=== PATIENT | male | born 1995 ===

== ENCOUNTER 2024-08-28 23:57 | Outpatient (BNV) | payer BC, SELFPAY | END 2024-08-29 10:51 | PROVIDERS: Admitting Provider Psychiatry & Neurology Psychiatry; Visit Provider Internal Medicine Cardiovascular Disease | DX: R00.1 Bradycardia, unspecified (principal) | CPT/HCPCS: 93010 ==

== ENCOUNTER 2024-08-28 23:57 | Inpatient (IN) | payer BC, SELFPAY ==
--- NOTE | 2024-08-29 | ECG_ITS ---
Test Reason : ECT clearance Blood Pressure : */* mmHG Vent. Rate : 45 BPM Atrial Rate : 45 BPM P-R Int : 140 ms QRS Dur : 114 ms QT Int : 446 ms P-R-T Axes : 66 85 77 degrees QTcB Int : 385 ms Sinus bradycardia Incomplete left bundle branch block ST elevation, consider early repolarization, pericarditis, or injury Abnormal ECG No previous ECGs available Referred By: Geoff Adkins Electronically Signed By: Charlie Diamond
--- OUTSIDE RECORDS SUMMARY | 2024-08-29 | XMS_ITS | Continuity of Care Document ---
Author Organization [facility] Address [address] [place] [address]- Care Team Providers Care Sales Team Manager Name Role Phone Alonso Sanchez DO Primary Care Physician [phone] Encounter [facility] Date(s): 08/25/24 - 08/25/[address] [address]- Encounter Diagnosis Anxiety(Final) - 08/25/24 Attention deficit disorder(Final) - 08/25/24 Discharge Disposition: A-D/C Home Attending Physician: Quan Rico MD Admitting Physician: Quan Rico MD Referring Physician: Not on Staff, Referring MD Encounter Type: Disch ES Allergies, Adverse Reactions, Alerts No Known Allergies Immunizations Given and Recorded Vaccine Date Status Refusal Reason influenza virus vaccine, inactivated 06/29/13 Dom rded influenza virus vaccine, inactivated 06/16/12 Dom rded influenza virus vaccine, inactivated 07/16/11 Dom rded influenza virus vaccine, inactivated 07/11/10 Dom rded pneumococcal 23-valent vaccine 07/16/11 Recorded Menactra (oldterm) 1 06/28/09 Given influ virus vac, H1N1, inactive(oldterm) 2 06/28/09 Given Influenza Inactive (IM) (oldterm) 06/08/08 Given Tet/Diphth/Acel, Pertussis (oldterm) 02/07/07 Give n hepatitis B adult vaccine 08/01/04 Recorded hepatitis B pediatric vaccine 07/18/95 Recorded hepatitis B pediatric vaccine 05/03/95 Recorded 1Admin Note: vis given 2Admin Note: vis given Medications No Known Medications Problem List Condition Confirmation Course Effective Dates Status Health St atus Informant Asthma Confirmed Active ADD (attention deficit disorder) Confirmed Active Abnormal blood sugar Confirmed Active Left clavicle fx 06/20/11 Confirmed Active Left wrist fracture 06/20/11 Confirmed 06/20/11 Active Depression Confirmed Active Vital Signs Most recent to oldest [Reference Range]: 1 2 3 Height 188 cm (08/25/24 2:43 AM) Weight 78.5 kg (08/25/24 2:43 AM) Oxygen Saturation [94-100 %] 100 % (08/25/24 9:50 AM) 100 % (08/25/24 5:35 AM) 100 % (08/25/24 2:43 AM) Pulse Rate [55-90 bpm] 54 bpm *L* (08/25/24 5:35 AM) 66 bpm (08/25/24 2:43 AM) Blood Pressure [90-138/55-84 mm Hg] 125/83mm Hg (08/25/24 9:50 AM) 109/66mm Hg (08/25/24 5:35 AM) 124/76mm Hg (08/25/24 2:43 AM) Respiratory Rate [16-30 br/min] 16 br/min (08/25/24 9:50 AM) 18 br/min (08/25/24 5:35 AM) 18 br/min (08/25/24 2:43 AM) Temperature [96.8-100.4 DegF] 98.1 DegF (08/25/24 9:50 AM) 97.8 DegF (08/25/24 5:35 AM) 97.8 DegF (08/25/24 2:43 AM) Mode of Delivery (Oxygen) Room air (08/25/24 9:50 AM) Room air (08/25/24 5:35 AM) Room air (08/25/24 2:43 AM) Temperature Route Temporal (08/25/24 9:50 AM) Temporal (08/25/24 5:35 AM) Temporal (08/25/24 2:43 AM) Dry Weight 78.5 kg (08/25/24 2:43 AM) Weight Obtained Via Patient/family state d (08/25/24 2:43 AM) Social History Social History Type Response Smoking Status Never smoker entered on: 04/06/14 Sex Sex Representation Male (finding) Patient Care team information Care Team Personnel Name: Daniel Alonso Position: Reference Physician Member Role: PCP Address: [address] [place] [address] Telecom: Care Team Related Persons Name: JUANA AQUINO Name: ARNOL AQUINO Insurance Providers Guarantor name: VIV Health Plan Information #: 1 Payer: [employer] Member Number: [id number] Policy Number: NA Group Number: [id number] Health Plan Information #: 2 Payer: [employer] Member Number: [id number] Policy Number: NA Group Number: [id number]
[2024-08-29 00:50] VITALS: BMI 21.3
[2024-08-29 01:20] VITALS: BP 108/70; PULSE 96; RESP 18; TEMP 36.9; O2SAT 98
--- NOTE | 2024-08-29 02:09 | PC.ADMIT ---
Addendum entered by Ana Troncoso RN 08/29/24 03:24: Late entry: Tae has declined the flu shot as of 0200. Original Note: Tae Grider is a 29 year old man admitted on a CV; he is on 5 minute checks due to catatonia. He was admitted on 08/29/24 at 0110. His safety check was completed at that time and his skin check was unremarkable. Tae is independent with mobility and ADLs. He has no history of alcohol use disorder or substance abuse disorder. He is not a smoker. His parents and sister report that his appetite and ADLs have suffered since he embarked on a adventism mission trip to [place] in the summer of 2023. Family has noted that he will perseverate on adventism themes and prayers, and appears to be responding to internal stimuli at times. He has also grown increasingly flat and/or blank. Tae had been seen recently at [facility] and improved briefly, but returned after decompensation, which led to this admission.
--- NOTE | 2024-08-29 02:32 | PC.NURSE ---
Patient refused flu shot. Patient also refused Ativan PO; he states I had a bad reaction to that in the ED when I was there...I went home and I was shaking and stuff. I don't want to take it again.
[2024-08-29 08:00] VITALS: BP 105/63; PULSE 71; RESP 20; TEMP 36.8; O2SAT 100
[2024-08-29 08:40] LABS: MANUAL DIFF FLAG NO
[2024-08-29 08:42] LABS: Basophils Percent Auto 0.4 % (0-2); Eosinophils Absolute Auto 0.1 X10*3/uL (0.0-0.4); Eosinophils Percent Auto 0.9 % (0-4); Hematocrit 40.7 % (42.0-52.0); Hemoglobin 14.8 g/dl (14.0-18.0); Imm Gran Abs Auto 0.01 X10*3/uL (0.00-0.03); Imm Gran Pct Auto 0.2 % (0.0-0.4); Lymphocytes Absolute Auto 1.1 X10*3/uL (1.2-4.9); Lymphocytes Percent Auto 19.5 % (20-40); Mean Corpuscular HGB Conc 36.4 g/dl (31.0-36.0); Mean Corpuscular Hemoglobin 32.8 pg (27.0-33.0); Mean Corpuscular Volume 90.2 fL (80.0-98.0); Mean Platelet Volume 9.8 fL (9.4-12.4); Monocytes Absolute Auto 0.5 X10*3/uL (0.1-1.2); Monocytes Percent Auto 9.3 % (2-11); Neutrophils Absolute Auto 3.9 x10*3/uL (2.0-8.3); Neutrophils Percent Auto 69.7 % (45-73); Platelet Count 195 X10*3/uL (160-400); Red Blood Count 4.51 X10*6/uL (4.60-5.80); Red Cell Distribution Width 11.6 % (11.0-16.0); White Blood Count 5.6 X10*3/uL (4.8-10.8)
[2024-08-29 08:55] LABS: Alanine Aminotransferase 31 U/L (0-40); Albumin Level 4.9 g/dL (3.5-5.0); Alkaline Phosphatase 43 U/L (39-117); Anion Gap 11 (12-20); Aspartate Amino Transferase 33 U/L (5-37); Bilirubin Total 0.9 mg/dL (0.0-1.0); Blood Urea Nitrogen 31 mg/dL (9-16); Calcium 9.3 mg/dL (8.4-10.2); Carbon Dioxide 27 mmol/L (22-29); Chloride 106 mmol/L (96-108); Creatinine Clr Calc Pharmacy 114.3; Estimated Glomerular Filt Rate > 60; Glucose Random 104 mg/dL (60-115); Potassium 4.2 mmol/L (3.3-5.1); Sodium 140 mmol/L (135-145); Total Protein 8.3 g/dL (6.5-8.0)
--- NOTE | 2024-08-29 09:16 | HO.PSYADMNOT ---
HPI Date of Service: 08/29/24 Chief Complaint: F23, F43.22, F29 Sources of Information: chart reviewed and crisis/core team assessment reviewed HPI Subjective Notes: Evans Warning and Conditional Voluntary Narrative: Tae is a 29-year-old white, single, young man works at times at the [employer] in [place]. He is currently living at home with his parents even though he does have a place of his own. He was taken to the emergency room by his family because of some issues with anxiety, depression, at times not communicating at all. In the emergency room at [facility] he was mostly nonverbal with flat affect. He was given some Ativan which she dislikes because ?I have a reaction to it? but can not specifically say what kind. He has had 1 prior hospitalizations at [facility] for ?catatonia?. I was able to talk to his mother with his verbal permission. He was recently on a jehovah's witness pilgrimage with an organization in [place] that went to [place] for 2 months. His mother feels that he might have been traumatized there but no specifics are unknown. Upon returning he presented as being more anxious, preoccupied. He denies any auditory or visual hallucinations but his mother wonders about him at times having internal stimuli. He also gets very boggy down with certain thought processes and at times has expressed the fact that his brain and thought processes are controlled by an outside force. He denies this with me today. No history of substance abuse. When he was younger he was on Wellbutrin and Adderall and was seeing a Pentecostal therapist who subsequently retired and he has not been seeing anybody since. He has been sleeping adequately and according to his mother has lost around 30 lb in the past 6 months. He is currently not interested in medications. Past Psychiatric History: Some outpatient and 1 inpatient hospitalization several years ago at [facility] Medical Evaluation Reviewed: Yes [facility] Narrative: No active disease Family History: 15 years ago his father was treated for a major depressive episode. His sister has had anxiety and also at times getting preoccupied with certain thought processes Social History: Tae is 1 of 6 siblings. His parents are together and live in [place] and have a [employer] business in [place]. Tae has no history of abuse. He has had some psychiatric problems with anxiety, depression, possible ADHD since his teens. He did finish high school, some courses at [employer] and got an engineering associates degree from [employer]. He does have some friends but never any relationships. He does have a place to live but he is living at home with his parents are very supportive. Substance History: None Trauma History: None known Diagnostics Vital Signs (24Hr): Vital Signs - 24 hr 08/29/24 01:20 08/29/24 08:00 Temperature 98.5 F 98.2 F Pulse Rate 96 71 Respiratory Rate 18 20 Blood Pressure 108/70 105/63 Pulse Oximetry 98 100 Oxygen Delivery Method Room Air Room Air BMI result Body Mass Index 21.3 Labs 08/29/24 08:32 08/29/24 08:32 Labs: Laboratory Results - last 48 hr 08/29/24 08:32 WBC 5.6 RBC 4.51 L Hgb 14.8 Hct 40.7 L MCV 90.2 MCH 32.8 MCHC 36.4 H RDW 11.6 Plt Count 195 MPV 9.8 Immature Gran % (Auto) 0.2 Neut % (Auto) 69.7 Lymph % (Auto) 19.5 L [place] % (Auto) 9.3 Eos % (Auto) 0.9 Baso % (Auto) 0.4 Lymph # (Auto) 1.1 L [place] # (Auto) 0.5 Eos # (Auto) 0.1 Baso # (Auto) 0.0 Abs Immat Gran (auto) 0.01 Absolute Neuts (auto) 3.9 Absolute Nucleated RBC 0.000 Nucleated RBC % (auto) 0.0 Sodium 140 Potassium 4.2 Chloride 106 Carbon Dioxide 27 Anion Gap 11 L BUN 31 H Creatinine 0.95 Estim Creat Clear Calc 114.3 Estimated GFR > 60 Random Glucose 104 Calcium 9.3 Total Bilirubin 0.9 AST 33 ALT 31 Alkaline Phosphatase 43 Total Protein 8.3 H Albumin 4.9 Meds/Allergies Allergies Allergies Allergy/AdvReac Type Severity Reaction Status Date / Time No Known Allergies Allergy Verified 08/29/24 00:18 Mental Status Exam Mental Status Exam Narrative: Tae was seen the morning after his admission. He is alert, oriented and pleasant. Soft-spoken speech. Minimal to moderate eye contact. Affect is appropriate and constricted. He does not appear to be responding to internal stimuli. He denies AVH. No overt delusions. Cognitively is grossly intact. He is more talkative than he was stated to be in the emergency room. He denies any SI/HI. Denies any history of self-harm. Judgment is marginal. Assessment & Plan Assessment & Plan (1) Major depression with psychotic features: Status: Acute Code(s): F32.3 - Major depressive disorder, single episode, severe with psychotic features Plan Tae meets criteria for IP LOC for evaluation and treatment. He minimizes any problems which has been the case historically and not willing to try any medications. I tried to explain to him that the Ativan that he received in the emergency room has been what has helped and he is much more verbal and interactive but he feels that he has a ?reaction? to Ativan!. I offered him a trial of SSRIs but he is not interested. He is signing a 3 day notice today. Patient educated on: diagnosis and medication risk/benefits Reason for continued inpatient stay Substantial Risk for: med/psych decompensation Statement Statement: I have reviewed the history and physical and performed a pertinent examination on my patient. No changes have occurred unless specified. If the History and Physical was not performed prior to admission, the Hospitalist's service will be consulted for completing the admission physical. Time Spent With Patient Time: Total time managing care of this patient today ____ minutes.
--- NOTE | 2024-08-29 13:26 | P.CONHOSP_ITS ---
History of Present Illness Data of Consult Service Date: 08/29/24 Primary Care Provider: Unknown Physician HPI A 29-year-old male with no significant past medical history is currently hospitalized in the inpatient psychiatric unit for depressive and anxiety symptoms with psychotic thoughts. He was admitted from [facility], where he was reportedly treated for catatonia. He reports no acute medical issues at this time. Review of Systems 2 Review of Systems: Gen: no fever Resp: no sob, no cough CV: no chest, no GUTIERREZ, no leg edema GI: No n/v, no abd pain Neuro: No confusion Yes all other systems are reviewed and are negative [facility] Social History Household Members: Family Housing: Unknown / Unable to assess Do you presently have visiting nurse or other home services: No Patient Tobacco Use Status: Former Tobacco user Tobacco use type: Cigarette Cigarette Packs Per Day: 0.05 Cigarettes Per Day: 1.0 Smoked in Last 30 Days: No e-Cigarette/Vaping Use: Never Used Patient Interested in Nicotine Replacement: No Patient Given Instructions on How to Stop Smoking: Yes Date Education Initiated: 08/29/24 Second Hand Smoke Exposure: Yes Use of substances other than those prescribed or required for medical reasons: No Currently Displaying Signs/Symptoms of Drug Intoxication Withdrawal: No Any prior treatment program specific to substance use: No Have you been hit, kicked, punched, or otherwise hurt by someone within the past year? If so, by whom?: No (Per [facility] record) Do you feel safe in your current relationship?: No Current Relationship Is there a partner from a previous relationship who is making you feel unsafe now?: No (Per [facility] record) Are you made to feel afraid or neglected: No (Per [facility] record) Advance Directives: No Advance Directives Information Provided: Yes Do you have thoughts of harming others: None Do you have a plan to hurt others: No Plan Recently lost weight without trying: Unsure Nutrition Risks: Poor intake 0-25% >4 days Poor oral hygiene: Yes Meds Allergies Allergy/AdvReac Type Severity Reaction Status Date / Time No Known Allergies Allergy Verified 08/29/24 00:18 Active Medications: Current Medications Acetaminophen (Acetaminophen 325 Mg Tablet) 650 mg PO Q6H PRN PRN Reason: Headache/Pain Mild Scale (1-3) Al Hydroxide/Mg Hydroxide (Magnesium Hydrox/Alum Hydrox 30 Ml Oral.Susp) 30 ml PO Q6H PRN PRN Reason: Heartburn/Nausea Hydroxyzine HCl (Hydroxyzine Hcl 25 Mg Tablet) 25 mg PO Q6H PRN PRN Reason: Anxiety Lorazepam (Lorazepam 1 Mg Tablet) 1 mg PO Q6H ROBERT Last Admin: 08/29/24 13:15 Dose: Not Given Magnesium Hydroxide (Milk Of Magnesia 30 Ml Oral.Susp) 30 ml PO DAILY PRN PRN Reason: Constipation Trazodone HCl (Trazodone Hcl 50 Mg Tablet) 50 mg PO BEDTIME MRX1 PRN PRN Reason: Insomnia Physical Exam 2 Vital Signs and Narrative: Vital Signs: Last Vital Signs Temp 98.2 F 08/29/24 08:00 Pulse 71 08/29/24 08:00 Resp 20 08/29/24 08:00 BP 105/63 08/29/24 08:00 Pulse Ox 100 08/29/24 08:00 O2 Del Method Room Air 08/29/24 08:00 BMI result Body Mass Index 21.3 Const: Other: General: AO X 3, no acute distress Resp: CTA bilateral CVS: S1,S2,RRR GI: +BS, NT, no distention Skin: No rash Neuro: motor grossly intact, CN 2 to 12 intact Psych: appropriate affect Results Labs 08/29/24 08:32 08/29/24 08:32 Labs: Laboratory Results - last 24 hr 08/29/24 08:32 MCV 90.2 MCH 32.8 MCHC 36.4 H RDW 11.6 Plt Count 195 MPV 9.8 Immature Gran % (Auto) 0.2 Neut % (Auto) 69.7 Lymph % (Auto) 19.5 L [place] % (Auto) 9.3 Eos % (Auto) 0.9 Baso % (Auto) 0.4 Lymph # (Auto) 1.1 L [place] # (Auto) 0.5 Eos # (Auto) 0.1 Baso # (Auto) 0.0 Abs Immat Gran (auto) 0.01 Absolute Neuts (auto) 3.9 Absolute Nucleated RBC 0.000 Nucleated RBC % (auto) 0.0 Anion Gap 11 L Estim Creat Clear Calc 114.3 Estimated GFR > 60 Random Glucose 104 Calcium 9.3 Total Bilirubin 0.9 AST 33 ALT 31 Alkaline Phosphatase 43 Total Protein 8.3 H Albumin 4.9 Assessment and Plan (1) Major depression with psychotic features: Status: Acute (2) Sinus bradycardia: Status: Acute Plan A 29-year-old man is being treated for depression, anxiety, and psychotic symptoms. He has no acute medical issues at present. If electroconvulsive therapy (ECT) is planned, no additional testing is necessary. I reviewed the ECG on record, which shows sinus bradycardia with early repolarization. The patient can proceed with ECT following standard guidelines. Otherwise, continue behavioral and pharmacological therapy as previously prescribed. Thank you.
--- NOTE | 2024-08-29 14:08 | PC.NURSE ---
Pt signed a 3 day notice 08/29/24 and appropriate persons notified.
[2024-08-29 20:00] VITALS: PULSE 65; RESP 15; TEMP 37.2; O2SAT 100
[2024-08-30 08:00] VITALS: BP 99/56; PULSE 88; RESP 20; TEMP 36.6; O2SAT 100
--- NOTE | 2024-08-30 11:03 | HO.PSYCHPN ---
Subjective Subjective Date of Service: 08/30/24 Reason For Visit: F23, F43.22, F29 Subjective Notes: Conditional Voluntary Interim History: Patient was seen and discussed in rounds today. Records and plans were reviewed. He continues to be mostly in his room but does come out and interact with staff. He states that he had a nightmare that woke him up this morning and has been visibly anxious from it but very resistant to taking Ativan or hydroxyzine which we discussed at length. I also discussed possibility of trying him on Xanax but he was not that committal. He talked about his family who visited yesterday and it went well. No SI. No changes were made today Review of Systems Review of Systems Anxiety Yes all other systems are reviewed and are negative Mental Status Exam Mental Status Exam Narrative: In today's visit he is alert, oriented and pleasant. Normal speech. Minimal eye contact. Affect is appropriate, tense and he is visibly anxious. No AVH. No active SI. Cognitively intact with slow thought processes and some blocking. Judgment is intact Diagnostics Vital Signs (24Hr): Vital Signs - 24 hr 08/29/24 20:00 08/30/24 08:00 Temperature 98.9 F 97.9 F Pulse Rate 65 88 Respiratory Rate 15 20 Blood Pressure 99/56 L Pulse Oximetry 100 100 Oxygen Delivery Method Room Air BMI result Body Mass Index 21.3 Labs 08/29/24 08:32 08/29/24 08:32 Labs: Laboratory Results - last 48 hr 08/29/24 08:32 WBC 5.6 RBC 4.51 L Hgb 14.8 Hct 40.7 L MCV 90.2 MCH 32.8 MCHC 36.4 H RDW 11.6 Plt Count 195 MPV 9.8 Immature Gran % (Auto) 0.2 Neut % (Auto) 69.7 Lymph % (Auto) 19.5 L [place] % (Auto) 9.3 Eos % (Auto) 0.9 Baso % (Auto) 0.4 Lymph # (Auto) 1.1 L [place] # (Auto) 0.5 Eos # (Auto) 0.1 Baso # (Auto) 0.0 Abs Immat Gran (auto) 0.01 Absolute Neuts (auto) 3.9 Absolute Nucleated RBC 0.000 Nucleated RBC % (auto) 0.0 Sodium 140 Potassium 4.2 Chloride 106 Carbon Dioxide 27 Anion Gap 11 L BUN 31 H Creatinine 0.95 Estim Creat Clear Calc 114.3 Estimated GFR > 60 Random Glucose 104 Calcium 9.3 Total Bilirubin 0.9 AST 33 ALT 31 Alkaline Phosphatase 43 Total Protein 8.3 H Albumin 4.9 Medications Medications Current Medications Acetaminophen (Acetaminophen 325 Mg Tablet) 650 mg PO Q6H PRN PRN Reason: Headache/Pain Mild Scale (1-3) Al Hydroxide/Mg Hydroxide (Magnesium Hydrox/Alum Hydrox 30 Ml Oral.Susp) 30 ml PO Q6H PRN PRN Reason: Heartburn/Nausea Hydroxyzine HCl (Hydroxyzine Hcl 25 Mg Tablet) 25 mg PO Q6H PRN PRN Reason: Anxiety Lorazepam (Lorazepam 1 Mg Tablet) 1 mg PO Q6H ROBERT Last Admin: 08/30/24 06:50 Dose: Not Given Magnesium Hydroxide (Milk Of Magnesia 30 Ml Oral.Susp) 30 ml PO DAILY PRN PRN Reason: Constipation Trazodone HCl (Trazodone Hcl 50 Mg Tablet) 50 mg PO BEDTIME MRX1 PRN PRN Reason: Insomnia Allergies Allergies Allergy/AdvReac Type Severity Reaction Status Date / Time No Known Allergies Allergy Verified 08/29/24 00:18 Assessment & Plan Assessment & Plan (1) Major depression with psychotic features: Status: Acute Code(s): F32.3 - Major depressive disorder, single episode, severe with psychotic features (2) Sinus bradycardia: Status: Acute Code(s): R00.1 - Bradycardia, unspecified Assessment and Plan: 08/30/2024: Continue current regimen and plans Plan A 29-year-old man is being treated for depression, anxiety, and psychotic symptoms. He has no acute medical issues at present. If electroconvulsive therapy (ECT) is planned, no additional testing is necessary. I reviewed the ECG on record, which shows sinus bradycardia with early repolarization. The patient can proceed with ECT following standard guidelines. Otherwise, continue behavioral and pharmacological therapy as previously prescribed. Thank you. Patient educated on: medication risk/benefits Reason for continued inpatient stay Substantial Risk for: med/psych decompensation Time Spent With Patient Time: Total time managing care of this patient today ____ minutes.
[2024-08-30] MEDS: LORazepam 1 MG TABLET PO (11:05)
[2024-08-30 19:53] VITALS: BP 127/66; PULSE 67; RESP 15; TEMP 36.1; O2SAT 100
[2024-08-31] MEDS: LORazepam 1 MG TABLET PO ×3 (11:18→20:16)
--- NOTE | 2024-08-31 19:20 | P.PNPSI_ITS ---
Subjective Subjective Date of Service: 08/31/24 Reason For Visit: F23, F43.22, F29 Interim History: Met with patient; discussed with team; reviewed chart On approach, patient lying on his bed in a stiff position, saying that I am just resting... Patient not wanting to engage much and had earlier refused Ativan. [employer] Pcb Draftsman discussed how Ativan is treatment for catatonia and patient said he would try it again. [employer] P[employer] Draftsman approached him later and he agreed that Ativan did help him considerably and he said he was much more able to walk, talk and not have obsessive thoughts though he would not disclose the contents. Patient agreed to continue with Ativan treatment. [employer] P[employer] Draftsman continued to talk with patient who said he was rarely comfortable sharing his private life but said he would talk in code and would use the game chess as an analogy. Patient said he was playing his father and chess and trying to lose in chess, and that for the past few months he had been doing weird things, eating lots of food, not talking, not sleeping (though no manic behaviors, does lying in bed wishing he could sleep)... And that he kept losing in chess over and over... He reminded commercial lines underwriter that he was talking in code and wanted to know if commercial lines underwriter understood. [employer] Pcb Draftsman explained it was not clear and patient got more anxious and said he did not want to talk much more about it for now. Patient was able to talk about other things, such as working at his [employer] Mental Status Exam Mental Status Exam Narrative: Pt is alert and oriented; behavior is guarded but also cooperative;, reticent, odd behaviors; patient is not in distress; dressed in hospital attire with unkempt;; mood is described as okay and affect anxious; eye contact avoidant; Speech is with some latency; normal volume; not pressured; psychomotor retardation present; thought process is goal directed but also distracted; Thought content is on undisclosed troubles; unable to assess for delusions; denies any SI/HI. Denies AVH but does appear internally preoccupied. Patients insight and judgment impaired Diagnostics Vital Signs (24Hr): Vital Signs - 24 hr 08/30/24 19:53 Temperature 96.9 F Pulse Rate 67 Respiratory Rate 15 Blood Pressure 127/66 Pulse Oximetry 100 BMI result Body Mass Index 21.3 Labs 08/29/24 08:32 08/29/24 08:32 Medications Medications Current Medications Acetaminophen (Acetaminophen 325 Mg Tablet) 650 mg PO Q6H PRN PRN Reason: Headache/Pain Mild Scale (1-3) Al Hydroxide/Mg Hydroxide (Magnesium Hydrox/Alum Hydrox 30 Ml Oral.Susp) 30 ml PO Q6H PRN PRN Reason: Heartburn/Nausea Hydroxyzine HCl (Hydroxyzine Hcl 25 Mg Tablet) 25 mg PO Q6H PRN PRN Reason: Anxiety Lorazepam (Lorazepam 1 Mg Tablet) 1 mg PO QID ROBERT Last Admin: 08/31/24 17:54 Dose: Not Given Magnesium Hydroxide (Milk Of Magnesia 30 Ml Oral.Susp) 30 ml PO DAILY PRN PRN Reason: Constipation Trazodone HCl (Trazodone Hcl 50 Mg Tablet) 50 mg PO BEDTIME MRX1 PRN PRN Reason: Insomnia Allergies Allergies Allergy/AdvReac Type Severity Reaction Status Date / Time No Known Allergies Allergy Verified 08/29/24 00:18 Assessment & Plan Assessment & Plan (1) Major depression with psychotic features: Status: Acute Code(s): F32.3 - Major depressive disorder, single episode, severe with psychotic features (2) Catatonia: Status: Acute Code(s): F06.1 - Catatonic disorder due to known physiological condition (3) Sinus bradycardia: Status: Acute Code(s): R00.1 - Bradycardia, unspecified Assessment and Plan: 08/30/2024: Continue current regimen and plans Plan Hospital course: 08/31 On approach, patient lying on his bed in a stiff position, saying that I am just resting... Patient not wanting to engage much and had earlier refused Ativan. [employer] P[employer] Draftsman discussed how Ativan is treatment for catatonia and patient said he would try it again. [employer] P[employer] Draftsman approached him later and he agreed that Ativan did help him considerably and he said he was much more able to walk, talk and not have obsessive thoughts though he would not disclose the contents. Patient agreed to continue with Ativan treatment. [employer] Pcb Draftsman continued to talk with patient who said he was rarely comfortable sharing his private life but said he would talk in code and would use the game chess as an analogy. Patient said he was playing his father and chess and trying to lose in chess, and that for the past few months he had been doing weird things, eating lots of food, not talking, not sleeping (though no manic behaviors, does lying in bed wishing he could sleep)... And that he kept losing in chess over and over... He reminded commercial lines underwriter that he was talking in code and wanted to know if commercial lines underwriter understood. [employer] Pcb Draftsman explained it was not clear and patient got more anxious and said he did not want to talk much more about it for now. Patient was able to talk about other things, such as working at his [employer] range Plan: Three day notice Ativan 1 mg q.i.d. for treatment of catatonia working on collateral; pt said could speak to his parents Patient educated on: diagnosis and medication risk/benefits Informed Consent: understands, does not understand and further education needed Reason for continued inpatient stay Substantial Risk for: rapid decompensation Time Spent With Patient Time: Total time managing care of this patient today ____ minutes.
[2024-08-31 20:00] VITALS: BP 103/69; PULSE 112; TEMP 36.4; O2SAT 96
[2024-09-01] MEDS: LORazepam 1 MG TABLET PO ×4 (09:33→20:44)
--- NOTE | 2024-09-01 13:40 | HO.PSYCHPN ---
Subjective Subjective Date of Service: 09/01/24 Reason For Visit: F23, F43.22, F29 Interim History: Met with patient; discussed with team Patient though guarded, decided to be open about what he was thinking and feeling. Patient asked contract technical writer if contract technical writer was aware of the game men play. He went on to describe that there is a game where a bigger, stronger man will compete against another man with body language is able to win by making the smaller man feel low self-esteem and it causes a headache and sometimes tunneled vision and can make you end up doing something you do not want to do...; this enables the bigger man to overall do what he wants (contract technical writer inquired and patient denied that there is any physical, sexual or verbal abuse). Patient said that his dad has hurt his self-worth with his game for years and that it caused a lot of strange behavior. Since he was losing, Patient said his own strategy was to get good at losing. When you lose there is a way out; you find some specific thing to come out of it. Patient said that he found that eating chicken sausage was his way out and so he would need a bunch of it. He reiterated that his dad would when too much with him and his brother. Patient said that now he no longer plays the game and according to the rules, this is allowable. Patient has never talked about this with anyone and thought that 1 of the rules as your are never supposed to talk about it. Patient came to this conclusion when he overheard two other people in a private conversation say you are not supposed to talk about it; he just assumed that they were talking about this specific game. Patient denies any auditory or visual hallucinations current or past. He shared it was a relief to finally be able to talk about this game and said that he thinks it was probably okay because this contract technical writer was his doctor. Online Retailer discussed treatment and that Ativan was a temporary medication use to get him out of catatonia, which seems to be helping. At this time patient is not willing to try any other medications. Online Retailer discussed perhaps patient staying longer on the unit to continue with Ativan treatment and to see if he might change his mind about medications however at this time patient still wanted to leave when his 3 day was due. Mental Status Exam Mental Status Exam Narrative: Pt is alert and oriented; behavior is guarded but more willing to open up; cooperative, calm; isolative; some odd behaviors; patient is not in distress; dressed in hospital attire with unkempt with marginal hygiene; mood is described as okay and affect anxious; eye contact avoidant; Speech is with some latency; normal volume; not pressured; psychomotor retardation present; thought process is goal directed but also distracted; Thought content is on delusional ideas; denies any SI/HI. Denies AVH but does appear internally preoccupied. Patients insight and judgment impaired Diagnostics Vital Signs (24Hr): Vital Signs - 24 hr 08/31/24 20:00 Temperature 97.5 F Pulse Rate 112 H Blood Pressure 103/69 Pulse Oximetry 96 Oxygen Delivery Method Room Air BMI result Body Mass Index 21.3 Labs 08/29/24 08:32 08/29/24 08:32 Medications Medications Current Medications Acetaminophen (Acetaminophen 325 Mg Tablet) 650 mg PO Q6H PRN PRN Reason: Headache/Pain Mild Scale (1-3) Al Hydroxide/Mg Hydroxide (Magnesium Hydrox/Alum Hydrox 30 Ml Oral.Susp) 30 ml PO Q6H PRN PRN Reason: Heartburn/Nausea Hydroxyzine HCl (Hydroxyzine Hcl 25 Mg Tablet) 25 mg PO Q6H PRN PRN Reason: Anxiety Lorazepam (Lorazepam 1 Mg Tablet) 1 mg PO QID ROBERT Last Admin: 09/01/24 12:14 Dose: 1 mg Magnesium Hydroxide (Milk Of Magnesia 30 Ml Oral.Susp) 30 ml PO DAILY PRN PRN Reason: Constipation Trazodone HCl (Trazodone Hcl 50 Mg Tablet) 50 mg PO BEDTIME MRX1 PRN PRN Reason: Insomnia Allergies Allergies Allergy/AdvReac Type Severity Reaction Status Date / Time No Known Allergies Allergy Verified 08/29/24 00:18 Assessment & Plan Assessment & Plan (1) Major depression with psychotic features: Status: Acute Code(s): F32.3 - Major depressive disorder, single episode, severe with psychotic features (2) Catatonia: Status: Acute Code(s): F06.1 - Catatonic disorder due to known physiological condition (3) Sinus bradycardia: Status: Acute Code(s): R00.1 - Bradycardia, unspecified Assessment and Plan: 08/30/2024: Continue current regimen and plans Plan HPI: Tae is a 29-year-old white, single, young man works at times at the [employer] in [place]. He is currently living at home with his parents even though he does have a place of his own. He was taken to the emergency room by his family because of some issues with anxiety, depression, at times not communicating at all. In the emergency room at [facility] he was mostly nonverbal with flat affect. He was given some Ativan which she dislikes because ?I have a reaction to it? but can not specifically say what kind. He has had 1 prior hospitalizations at [facility] for ?catatonia?. I was able to talk to his mother with his verbal permission. He was recently on a anabaptism pilgrimage with an organization in [place] that went to [place] for 2 months. His mother feels that he might have been traumatized there but no specifics are unknown. Upon returning he presented as being more anxious, preoccupied. He denies any auditory or visual hallucinations but his mother wonders about him at times having internal stimuli. He also gets very boggy down with certain thought processes and at times has expressed the fact that his brain and thought processes are controlled by an outside force. He denies this with me today. No history of substance abuse. When he was younger he was on Wellbutrin and Adderall and was seeing a Sikh therapist who subsequently retired and he has not been seeing anybody since. He has been sleeping adequately and according to his mother has lost around 30 lb in the past 6 months. He is currently not interested in medications. Hospital course: 08/31 On approach, patient lying on his bed in a stiff position, saying that I am just resting... Patient not wanting to engage much and had earlier refused Ativan. Online Retailer discussed how Ativan is treatment for catatonia and patient said he would try it again. Online Retailer approached him later and he agreed that Ativan did help him considerably and he said he was much more able to walk, talk and not have obsessive thoughts though he would not disclose the contents. Patient agreed to continue with Ativan treatment. Online Retailer continued to talk with patient who said he was rarely comfortable sharing his private life but said he would talk in code and would use the game chess as an analogy. Patient said he was playing his father and chess and trying to lose in chess, and that for the past few months he had been doing weird things, eating lots of food, not talking, not sleeping (though no manic behaviors, does lying in bed wishing he could sleep)... And that he kept losing in chess over and over... He reminded contract technical writer that he was talking in code and wanted to know if contract technical writer understood. Online Retailer explained it was not clear and patient got more anxious and said he did not want to talk much more about it for now. Patient was able to talk about other things, such as working at his family [employer] range 09/01 Patient though guarded, decided to be open about what he was thinking and feeling. Patient asked contract technical writer if contract technical writer was aware of the game men play. He went on to describe that there is a game where a bigger, stronger man will compete against another man with body language is able to win by making the smaller man feel low self-esteem and it causes a headache and sometimes tunneled vision and can make you end up doing something you do not want to do...; this enables the bigger man to overall do what he wants (contract technical writer inquired and patient denied that there is any physical, sexual or verbal abuse). Patient said that his dad has hurt his self-worth with his game for years and that it caused a lot of strange behavior. Since he was losing, Patient said his own strategy was to get good at losing. When you lose there is a way out; you find some specific thing to come out of it. Patient said that he found that eating chicken sausage was his way out and so he would need a bunch of it. He reiterated that his dad would when too much with him and his brother. Patient said that now he no longer plays the game and according to the rules, this is allowable. Patient has never talked about this with anyone and thought that 1 of the rules as your are never supposed to talk about it. Patient came to this conclusion when he overheard two other people in a private conversation say you are not supposed to talk about it; he just assumed that they were talking about this specific game. Patient denies any auditory or visual hallucinations current or past. He shared it was a relief to finally be able to talk about this game and said that he thinks it was probably okay because this contract technical writer was his doctor. Online Retailer discussed treatment and that Ativan was a temporary medication use to get him out of catatonia, which seems to be helping. At this time patient is not willing to try any other medications. Online Retailer discussed perhaps patient staying longer on the unit to continue with Ativan treatment and to see if he might change his mind about medications however at this time patient still wanted to leave when his 3 day was due. Initial formulation: Patient is describing what sounds like calm in, nonverbal interactions between males jockeying for dominance in social situations. However he has a delusional perspective on these interactions. He denies any AVH. There is speech latency and he does seem internally preoccupied so it is difficult to tell. There is also an OCD quality to some of his symptoms as he seems to have intrusive thoughts as well. At this time he is not open to other medication treatment. Plan: Three day notice Ativan 1 mg q.i.d. for treatment of catatonia working on collateral; pt said could speak to his parents Patient educated on: diagnosis, medication risk/benefits and therapeutic strategies Informed Consent: understands, does not understand and further education needed Reason for continued inpatient stay Substantial Risk for: rapid decompensation Time Spent With Patient Time: Total time managing care of this patient today ____ minutes.
[2024-09-01] MEDS: Acetaminophen 325 MG TABLET 650 MG PO (17:55)
[2024-09-01 19:55] VITALS: BP 116/55; PULSE 85; RESP 18; TEMP 36.6; O2SAT 95
[2024-09-02 08:40] VITALS: BP 124/63; PULSE 71; RESP 16; TEMP 36.9; O2SAT 100
[2024-09-02] MEDS: LORazepam 1 MG TABLET PO ×4 (08:43→20:12)
--- NOTE | 2024-09-02 13:12 | P.PNPSI_ITS ---
Subjective Subjective Date of Service: 09/02/24 Reason For Visit: F23, F43.22, F29 Interim History: Patient lacks awareness of his current presentation, thinking that if he was not on the unit, back home where he is comfortable, he would be up moving around and ready for work. Stamper Blocker however reminds patient that he was at home and family was so concerned they brought him to the hospital, which he acknowledged and subsequently became more open to realizing he is not acting as his regular self. Stamper Blocker discussed his current struggles with moving, eating, drinking, talking and advertising copy writer's and mother's concern that he is not ready for discharge but she remain on the unit and consider other medication management. Patient agreed and retracted his 3 day notice and after discussing medications, risk of side effects agreed to try Risperdal. Collateral from patient's mother (patient gave permission and she has been visiting): Past summer got back from a mission trip in [place] where he was for 2 months; this past January he was fine, working and acting normally Mother reports that since this fall patient has started to detach and over ?May and June was unable to focus or function normally at work.? The past month however he has been very unusual, standing for hours in [address] and just looking at the wall or sitting in [address] and just staring blankly.? He has had a perseverative thought, saying something about? ?a foolish prayer? that he had as a child wondering if he could be forgiven?.? Would tell his mother random, odd ?things like ?give me milk at 10:00 o'clock in that cup? or tell her not to come near him right now? unable to communicate clearly or think straight.? Has not been eating much or drinking much and lost weight? -She does not know about auditory hallucinations Hx: As a child diagnosed with a central auditory processing deficit and at baseline there is some delay in thinking or responding.? He was hospitalized fears ago after he took an overdose of Adderall and got delusional. History of depression and on Wellbutrin Patient has had OCD symptoms of obsessive handwashing (possibly raynauds) Family hx: His father had a similar type episode where he was depressed but having this repetitive thought that he needs to sell everything? was treated with Zoloft which seemed helpful Patient's sister had some OCD symptoms, treated with Zoloft Mental Status Exam Mental Status Exam Narrative: Pt is alert and oriented; behavior is more open, less guarded; isolative but cooperative, calm; patient is not in distress; dressed in hospital attire, unkempt and malodorous; mood is described as good affect is blunted but also a little brighter; eye contact less avoidant; Speech remains with some latency; normal volume; not pressured; psychomotor retardation present; thought process is goal directed but also distracted; Thought content is on delusional ideas; denies any SI/HI. Denies AVH but does appear internally preoccupied. Patients insight and judgment impaired Diagnostics Vital Signs (24Hr): Vital Signs - 24 hr 09/01/24 19:55 09/02/24 08:40 Temperature 97.8 F 98.4 F Pulse Rate 85 71 Respiratory Rate 18 16 Blood Pressure 116/55 L 124/63 Pulse Oximetry 95 100 Oxygen Delivery Method Room Air Room Air BMI result Body Mass Index 21.3 Labs 08/29/24 08:32 08/29/24 08:32 Medications Medications Current Medications Acetaminophen (Acetaminophen 325 Mg Tablet) 650 mg PO Q6H PRN PRN Reason: Headache/Pain Mild Scale (1-3) Last Admin: 09/01/24 17:55 Dose: 650 mg Al Hydroxide/Mg Hydroxide (Magnesium Hydrox/Alum Hydrox 30 Ml Oral.Susp) 30 ml PO Q6H PRN PRN Reason: Heartburn/Nausea Hydroxyzine HCl (Hydroxyzine Hcl 25 Mg Tablet) 25 mg PO Q6H PRN PRN Reason: Anxiety Lorazepam (Lorazepam 1 Mg Tablet) 1 mg PO QID ROBERT Last Admin: 09/02/24 08:43 Dose: 1 mg Magnesium Hydroxide (Milk Of Magnesia 30 Ml Oral.Susp) 30 ml PO DAILY PRN PRN Reason: Constipation Trazodone HCl (Trazodone Hcl 50 Mg Tablet) 50 mg PO BEDTIME MRX1 PRN PRN Reason: Insomnia Allergies Allergies Allergy/AdvReac Type Severity Reaction Status Date / Time No Known Allergies Allergy Verified 08/29/24 00:18 Assessment & Plan Assessment & Plan (1) Major depression with psychotic features: Status: Acute Code(s): F32.3 - Major depressive disorder, single episode, severe with psychotic features (2) Catatonia: Status: Acute Code(s): F06.1 - Catatonic disorder due to known physiological condition (3) Sinus bradycardia: Status: Acute Code(s): R00.1 - Bradycardia, unspecified Assessment and Plan: 08/30/2024: Continue current regimen and plans Plan HPI: Tae is a 29-year-old white, single, young man works at times at the [employer] in [place]. He is currently living at home with his parents even though he does have a place of his own. He was taken to the emergency room by his family because of some issues with anxiety, depression, at times not communicating at all. In the emergency room at [facility] he was mostly nonverbal with flat affect. He was given some Ativan which she dislikes because ?I have a reaction to it? but can not specifically say what kind. He has had 1 prior hospitalizations at [facility] for ?catatonia?. I was able to talk to his mother with his verbal permission. He was recently on a buddhist pilgrimage with an organization in [place] that went to [place] for 2 months. His mother feels that he might have been traumatized there but no specifics are unknown. Upon returning he presented as being more anxious, preoccupied. He denies any auditory or visual hallucinations but his mother wonders about him at times having internal stimuli. He also gets very boggy down with certain thought processes and at times has expressed the fact that his brain and thought processes are controlled by an outside force. He denies this with me today. No history of substance abuse. When he was younger he was on Wellbutrin and Adderall and was seeing a Yazdanism therapist who subsequently retired and he has not been seeing anybody since. He has been sleeping adequately and according to his mother has lost around 30 lb in the past 6 months. He is currently not interested in medications. Hospital course: 08/31 On approach, patient lying on his bed in a stiff position, saying that I am just resting... Patient not wanting to engage much and had earlier refused Ativan. Stamper Blocker discussed how Ativan is treatment for catatonia and patient said he would try it again. Stamper Blocker approached him later and he agreed that Ativan did help him considerably and he said he was much more able to walk, talk and not have obsessive thoughts though he would not disclose the contents. Patient agreed to continue with Ativan treatment. Stamper Blocker continued to talk with patient who said he was rarely comfortable sharing his private life but said he would talk in code and would use the game chess as an analogy. Patient said he was playing his father and chess and trying to lose in chess, and that for the past few months he had been doing weird things, eating lots of food, not talking, not sleeping (though no manic behaviors, does lying in bed wishing he could sleep)... And that he kept losing in chess over and over... He reminded advertising copy writer that he was talking in code and wanted to know if advertising copy writer understood. Stamper Blocker explained it was not clear and patient got more anxious and said he did not want to talk much more about it for now. Patient was able to talk about other things, such as working at his family [employer] 09/01 Patient though guarded, decided to be open about what he was thinking and feeling. Patient asked advertising copy writer if advertising copy writer was aware of the game men play. He went on to describe that there is a game where a bigger, stronger man will compete against another man with body language is able to win by making the smaller man feel low self-esteem and it causes a headache and sometimes tunneled vision and can make you end up doing something you do not want to do...; this enables the bigger man to overall do what he wants (advertising copy writer inquired and patient denied that there is any physical, sexual or verbal abuse). Patient said that his dad has hurt his self-worth with his game for years and that it caused a lot of strange behavior. Since he was losing, Patient said his own strategy was to get good at losing. When you lose there is a way out; you find some specific thing to come out of it. Patient said that he found that eating chicken sausage was his way out and so he would need a bunch of it. He reiterated that his dad would when too much with him and his brother. Patient said that now he no longer plays the game and according to the rules, this is allowable. Patient has never talked about this with anyone and thought that 1 of the rules as your are never supposed to talk about it. Patient came to this conclusion when he overheard two other people in a private conversation say you are not supposed to talk about it; he just assumed that they were talking about this specific game. Patient denies any auditory or visual hallucinations current or past. He shared it was a relief to finally be able to talk about this game and said that he thinks it was probably okay because this advertising copy writer was his doctor. Stamper Blocker discussed treatment and that Ativan was a temporary medication use to get him out of catatonia, which seems to be helping. At this time patient is not willing to try any other medications. Stamper Blocker discussed perhaps patient staying longer on the unit to continue with Ativan treatment and to see if he might change his mind about medications however at this time patient still wanted to leave when his 3 day was due. Initial formulation: Patient is describing what sounds like calm in, nonverbal interactions between males jockeying for dominance in social situations. However he has a delusional perspective on these interactions. He denies any AVH. There is speech latency and he does seem internally preoccupied so it is difficult to tell. There is also an OCD quality to some of his symptoms as he seems to have intrusive thoughts as well. At this time he is not open to other medication treatment. 09/02 Patient lacks awareness of his current presentation, thinking that if he was not on the unit, back home where he is comfortable, he would be up moving around and ready for work. Stamper Blocker however reminds patient that he was at home and family was so concerned they brought him to the hospital, which he acknowledged and subsequently became more open to realizing he is not acting as his regular self. Stamper Blocker discussed his current struggles with moving, eating, drinking, talking and advertising copy writer's and mother's concern that he is not ready for discharge but she remain on the unit and consider other medication management. Patient agreed and retracted his 3 day notice and after discussing medications, risk of side effects agreed to try Risperdal. Collateral from patient's mother (patient gave permission and she has been visiting): Past summer got back from a mission trip in [place] where he was for 2 months; this past January he was fine, working and acting normally Mother reports that since this fall patient has started to detach and over ?May and June was unable to focus or function normally at work.? The past month however he has been very unusual, standing for hours in 1 place and just looking at the wall or sitting in 1 place and just staring blankly.? He has had a perseverative thought, saying something about? ?a foolish prayer? that he had as a child wondering if he could be forgiven?.? Would tell his mother random, odd ?things like ?give me milk at 10:00 o'clock in that cup? or tell her not to come near him right now? unable to communicate clearly or think straight.? Has not been eating much or drinking much and lost weight? -She does not know about auditory hallucinations Hx: As a child diagnosed with a central auditory processing deficit and at baseline there is some delay in thinking or responding.? He was hospitalized fears ago after he took an overdose of Adderall and got delusional. History of depression and on Wellbutrin Patient has had OCD symptoms of obsessive handwashing (possibly raynauds) Family hx: His father had a similar type episode where he was depressed but having this repetitive thought that he needs to sell everything? was treated with Zoloft which seemed helpful Patient's sister had some OCD symptoms, treated with Zoloft Impression: Given collateral, and family history of OCD, treated with SSRI, it is difficult to tell to what extent patient is experiencing exacerbation of OCD symptoms verses emergence of psychotic illness. Patient has very poor insight into his presentation, imagining that if he were to discharge today he be fully capable of working to full capacity, unaware of his slowed movements, struggles talking, confused thinking...Given his delusional ideas, advertising copy writer will start him on low- dose Risperdal for now, instead of an SSRI; however will strongly keep this in mind going forward Plan: Sign CV Continue Ativan 1 mg q.i.d. for treatment of catatonia Start Risperdal 0.5 mg b.i.d. working on collateral; pt said could speak to his parents Patient educated on: diagnosis, medication risk/benefits and therapeutic strategies Informed Consent: understands, does not understand and further education needed Reason for continued inpatient stay Substantial Risk for: inability to function, rapid decompensation and med/psych decompensation Time Spent With Patient Time: Total time managing care of this patient today ____ minutes.
[2024-09-02] MEDS: risperiDONE 0.5 MG TABLET PO ×2 (16:18→20:12)
[2024-09-02 19:39] VITALS: BP 109/64; PULSE 83; TEMP 36.7; O2SAT 100
[2024-09-03 07:00] VITALS: BMI 21.3
[2024-09-03 08:00] VITALS: BP 104/62; PULSE 62; RESP 18; TEMP 36.4; O2SAT 99
[2024-09-03] MEDS: risperiDONE 0.5 MG TABLET PO ×2 (08:12→20:31)
[2024-09-03] MEDS: LORazepam 1 MG TABLET PO ×4 (08:12→20:31)
[2024-09-03] MEDS: Magnesium Hydrox/Alum Hydrox 30 ML ORAL.SUSP PO (11:36)
--- NOTE | 2024-09-03 14:21 | HO.PSYCHPN ---
Subjective Subjective Date of Service: 09/03/24 Reason For Visit: F23, F43.22, F29 Interim History: Met with patient discussed with team; family meeting with mother Patient says he is feeling much better now that started Risperdal. Said it feels amazingly now that he can relax is mind; he feels tremendous relief from not having to focus on solving certain thoughts. Patient says he had so much unnecessary urgency to think about certain things that is now relieved. Patient feels very grateful for Risperdal. Mom feels that he is on his way back, perhaps a 6, 10 being his regular herself. She feels that he still not looking people in the eye as much and is still little slowed. Patient remains grateful however that he is not on a hamster real of thought. He is glad he remained for treatment; will see other week ago is a whether not to titrate Risperdal Mental Status Exam Mental Status Exam Narrative: Pt is alert and oriented; behavior is calm, quiet, more open; cooperative; still walks around a little stiff and staring ahead; patient is not in distress; dressed in hospital attire, but with improved hygiene; mood is described as good affect remains blunted but is also brighter, intermittently smiling at times; eye contact less avoidant; Speech remains with some latency; normal volume; not pressured; some psychomotor retardation present; thought process with some blocking but is goal directed and linear; Thought content is grateful for treatment, no longer with obsessive thoughts; denies any SI/HI. Denies AVH. Patients insight and judgment impaired but significantly improving Diagnostics Vital Signs (24Hr): Vital Signs - 24 hr 09/02/24 19:39 09/03/24 08:00 Temperature 98.0 F 97.5 F Pulse Rate 83 62 Respiratory Rate 18 Blood Pressure 109/64 104/62 Pulse Oximetry 100 99 Oxygen Delivery Method Room Air Room Air BMI result Body Mass Index 21.3 Labs 08/29/24 08:32 08/29/24 08:32 Medications Medications Current Medications Acetaminophen (Acetaminophen 325 Mg Tablet) 650 mg PO Q6H PRN PRN Reason: Headache/Pain Mild Scale (1-3) Last Admin: 09/01/24 17:55 Dose: 650 mg Al Hydroxide/Mg Hydroxide (Magnesium Hydrox/Alum Hydrox 30 Ml Oral.Susp) 30 ml PO Q6H PRN PRN Reason: Heartburn/Nausea Last Admin: 09/03/24 11:36 Dose: 30 ml Hydroxyzine HCl (Hydroxyzine Hcl 25 Mg Tablet) 25 mg PO Q6H PRN PRN Reason: Anxiety Lorazepam (Lorazepam 1 Mg Tablet) 1 mg PO QID COUNT INCLUDES THE [facility] Last Admin: 09/03/24 12:49 Dose: 1 mg Magnesium Hydroxide (Milk Of Magnesia 30 Ml Oral.Susp) 30 ml PO DAILY PRN PRN Reason: Constipation Risperidone (Risperidone 0.5 Mg Tablet) 0.5 mg PO BID COUNT INCLUDES THE [facility] Last Admin: 09/03/24 08:12 Dose: 0.5 mg Trazodone HCl (Trazodone Hcl 50 Mg Tablet) 50 mg PO BEDTIME MRX1 PRN PRN Reason: Insomnia Allergies Allergies Allergy/AdvReac Type Severity Reaction Status Date / Time No Known Allergies Allergy Verified 08/29/24 00:18 Assessment & Plan Assessment & Plan (1) Major depression with psychotic features: Status: Acute Code(s): F32.3 - Major depressive disorder, single episode, severe with psychotic features (2) Catatonia: Status: Acute Code(s): F06.1 - Catatonic disorder due to known physiological condition (3) Sinus bradycardia: Status: Acute Code(s): R00.1 - Bradycardia, unspecified Assessment and Plan: 08/30/2024: Continue current regimen and plans Plan HPI: Tae is a 29-year-old white, single, young man works at times at the [employer] in [place]. He is currently living at home with his parents even though he does have a place of his own. He was taken to the emergency room by his family because of some issues with anxiety, depression, at times not communicating at all. In the emergency room at [facility] he was mostly nonverbal with flat affect. He was given some Ativan which she dislikes because ?I have a reaction to it? but can not specifically say what kind. He has had 1 prior hospitalizations at [facility] for ?catatonia?. I was able to talk to his mother with his verbal permission. He was recently on a mormonism pilgrimage with an organization in [place] that went to [place] for 2 months. His mother feels that he might have been traumatized there but no specifics are unknown. Upon returning he presented as being more anxious, preoccupied. He denies any auditory or visual hallucinations but his mother wonders about him at times having internal stimuli. He also gets very boggy down with certain thought processes and at times has expressed the fact that his brain and thought processes are controlled by an outside force. He denies this with me today. No history of substance abuse. When he was younger he was on Wellbutrin and Adderall and was seeing a [employer] therapist who subsequently retired and he has not been seeing anybody since. He has been sleeping adequately and according to his mother has lost around 30 lb in the past 6 months. He is currently not interested in medications. Hospital course: 08/31 On approach, patient lying on his bed in a stiff position, saying that I am just resting... Patient not wanting to engage much and had earlier refused Ativan. Post Tensioning Ironworker discussed how Ativan is treatment for catatonia and patient said he would try it again. Post Tensioning Ironworker approached him later and he agreed that Ativan did help him considerably and he said he was much more able to walk, talk and not have obsessive thoughts though he would not disclose the contents. Patient agreed to continue with Ativan treatment. Post Tensioning Ironworker continued to talk with patient who said he was rarely comfortable sharing his private life but said he would talk in code and would use the game cheIndisys as an analogy. Patient said he was playing his father and chess and trying to lose in chess, and that for the past few months he had been doing weird things, eating lots of food, not talking, not sleeping (though no manic behaviors, does lying in bed wishing he could sleep)... And that he kept losing in chess over and over... He reminded typewriters functional tester that he was talking in code and wanted to know if typewriters functional tester understood. Post Tensioning Ironworker explained it was not clear and patient got more anxious and said he did not want to talk much more about it for now. 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 Patient asked typewriters functional tester if typewriters functional tester was aware of the game men play. He went on to describe that there is a game where a bigger, stronger man will compete against another man with body language is able to win by making the smaller man feel low self-esteem and it causes a headache and sometimes tunneled vision and can make you end up doing something you do not want to do...; this enables the bigger man to overall do what he wants (typewriters functional tester inquired and patient denied that there is any physical, sexual or verbal abuse). Patient said that his dad has hurt his self-worth with his game for years and that it caused a lot of strange behavior. Since he was losing, Patient said his own strategy was to get good at losing. When you lose there is a way out; you find some specific thing to come out of it. Patient said that he found that eating chicken sausage was his way out and so he would need a bunch of it. He reiterated that his dad would when too much with him and his brother. Patient said that now he no longer plays the game and according to the rules, this is allowable. Patient has never talked about this with anyone and thought that 1 of the rules as your are never supposed to talk about it. Patient came to this conclusion when he overheard two other people in a private conversation say you are not supposed to talk about it; he just assumed that they were talking about this specific game. Patient denies any auditory or visual hallucinations current or past. He shared it was a relief to finally be able to talk about this game and said that he thinks it was probably okay because this typewriters functional tester was his doctor. Post Tensioning Ironworker discussed treatment and that Ativan was a temporary medication use to get him out of catatonia, which seems to be helping. At this time patient is not willing to try any other medications. Post Tensioning Ironworker discussed perhaps patient staying longer on the unit to continue with Ativan treatment and to see if he might change his mind about medications however at this time patient still wanted to leave when his 3 day was due. Initial formulation: Patient is describing what sounds like calm in, nonverbal interactions between males jockeying for dominance in social situations. However he has a delusional perspective on these interactions. He denies any AVH. There is speech latency and he does seem internally preoccupied so it is difficult to tell. There is also an OCD quality to some of his symptoms as he seems to have intrusive thoughts as well. At this time he is not open to other medication treatment. 09/02 Patient lacks awareness of his current presentation, thinking that if he was not on the unit, back home where he is comfortable, he would be up moving around and ready for work. Post Tensioning Ironworker however reminds patient that he was at home and family was so concerned they brought him to the hospital, which he acknowledged and subsequently became more open to realizing he is not acting as his regular self. Post Tensioning Ironworker discussed his current struggles with moving, eating, drinking, talking and typewriters functional tester's and mother's concern that he is not ready for discharge but she remain on the unit and consider other medication management. Patient agreed and retracted his 3 day notice and after discussing medications, risk of side effects agreed to try Risperdal. Collateral from patient's mother (patient gave permission and she has been visiting): Past summer got back from a mission trip in [place] where he was for 2 months; this past January he was fine, working and acting normally Mother reports that since this fall patient has started to detach and over ?May and June was unable to focus or function normally at work.? The past month however he has been very unusual, standing for hours in [address] and just looking at the wall or sitting in [address] and just staring blankly.? He has had a perseverative thought, saying something about? ?a foolish prayer? that he had as a child wondering if he could be forgiven?.? Would tell his mother random, odd ?things like ?give me milk at 10:00 o'clock in that cup? or tell her not to come near him right now? unable to communicate clearly or think straight.? Has not been eating much or drinking much and lost weight? -She does not know about auditory hallucinations Hx: As a child diagnosed with a central auditory processing deficit and at baseline there is some delay in thinking or responding.? He was hospitalized fears ago after he took an overdose of Adderall and got delusional. History of depression and on Wellbutrin Patient has had OCD symptoms of obsessive handwashing (possibly raynauds) Family hx: His father had a similar type episode where he was depressed but having this repetitive thought that he needs to sell everything? was treated with Zoloft which seemed helpful Patient's sister had some OCD symptoms, treated with Zoloft Impression: Given collateral, and family history of OCD, treated with SSRI, it is difficult to tell to what extent patient is experiencing exacerbation of OCD symptoms verses emergence of psychotic illness. Patient has very poor insight into his presentation, imagining that if he were to discharge today he be fully capable of working to full capacity, unaware of his slowed movements, struggles talking, confused thinking...Given his delusional ideas, typewriters functional tester will start him on low-dose Risperdal for now, instead of an SSRI; however will strongly keep this in mind going forward 09/03 Patient says he is feeling much better now that started Risperdal. Said it feels amazingly now that he can relax is mind; he feels tremendous relief from not having to focus on solving certain thoughts. Patient says he had so much unnecessary urgency to think about certain things that is now relieved. Patient feels very grateful for Risperdal. Mom feels that he is on his way back, perhaps a 01/19, 10 being his regular herself. She feels that he still not looking people in the eye as much and is still little slowed. Patient remains grateful however that he is not on a hamster real of thought. He is glad he remained for treatment; will see other week ago is a whether not to titrate Risperdal Plan: Sign CV Continue Ativan 1 mg q.i.d. for treatment of catatonia continue Risperdal 0.5 mg b.i.d. working on collateral; pt said could speak to his parents Patient educated on: diagnosis and medication risk/benefits Informed Consent: understands and further education needed Reason for continued inpatient stay Substantial Risk for: stable for discharge and rapid decompensation Time Spent With Patient Time: Total time managing care of this patient today ____ minutes.
[2024-09-03 20:00] VITALS: BP 134/97; PULSE 136; TEMP 36.6; O2SAT 97
[2024-09-04 08:00] VITALS: BP 123/58; PULSE 59; RESP 16; TEMP 36.6; O2SAT 95
[2024-09-04] MEDS: LORazepam 1 MG TABLET PO ×3 (08:50→21:02)
[2024-09-04] MEDS: risperiDONE 0.5 MG TABLET PO ×2 (08:50→21:02)
--- NOTE | 2024-09-04 19:23 | HO.PSYCHPN ---
Subjective Subjective Date of Service: 09/04/24 Reason For Visit: F23, F43.22, F29 Interim History: Met with patient; discussed with team Patient reports that he continues to feel much better and freed from obsessive thinking. Says he has been a little nauseous but thinks it started before initiated with Risperdal. Agrees to continue taking it feeling that this is the best he has felt in a long time; at this time does not feel need to increase dose. Sleeping well, starting to eat more. Says he is looking for to going home Mental Status Exam Mental Status Exam Narrative: Pt is alert and oriented; behavior is calm, quiet, more open; cooperative; still walks around a little stiff and staring ahead; patient is not in distress; dressed in hospital attire, but with improved hygiene; mood is described as good affect remains blunted but is also brighter, intermittently smiling at times; eye contact less avoidant; Speech remains with some latency; normal volume; not pressured; some psychomotor retardation present; thought process with some blocking but is goal directed and linear; Thought content is grateful for treatment, no longer with obsessive thoughts; denies any SI/HI. Denies AVH. Patients insight and judgment impaired but significantly improving Diagnostics Vital Signs (24Hr): Vital Signs - 24 hr 09/03/24 20:00 09/04/24 08:00 Temperature 97.8 F 97.8 F Pulse Rate 136 H 59 Respiratory Rate 16 Blood Pressure 134/97 H 123/58 L Pulse Oximetry 97 95 Oxygen Delivery Method Room Air BMI result Body Mass Index 21.3 Labs 08/29/24 08:32 08/29/24 08:32 Medications Medications Current Medications Acetaminophen (Acetaminophen 325 Mg Tablet) 650 mg PO Q6H PRN PRN Reason: Headache/Pain Mild Scale (1-3) Last Admin: 09/01/24 17:55 Dose: 650 mg Calcium Carbonate (Calcium Carbonate 750 Mg Tab.Chew) 750 mg PO Q4H PRN PRN Reason: Heartburn Hydroxyzine HCl (Hydroxyzine Hcl 25 Mg Tablet) 25 mg PO Q6H PRN PRN Reason: Anxiety Lorazepam (Lorazepam 1 Mg Tablet) 1 mg PO QID ROBERT Last Admin: 09/04/24 17:27 Dose: Not Given Magnesium Hydroxide (Milk Of Magnesia 30 Ml Oral.Susp) 30 ml PO DAILY PRN PRN Reason: Constipation Risperidone (Risperidone 0.5 Mg Tablet) 0.5 mg PO BID ROBERT Last Admin: 09/04/24 08:50 Dose: 0.5 mg Risperidone (Risperidone 0.5 Mg Tablet) 0.5 mg PO TID PRN PRN Reason: obsessive thinking Trazodone HCl (Trazodone Hcl 50 Mg Tablet) 50 mg PO BEDTIME MRX1 PRN PRN Reason: Insomnia Allergies Allergies Allergy/AdvReac Type Severity Reaction Status Date / Time No Known Allergies Allergy Verified 08/29/24 00:18 Assessment & Plan Assessment & Plan (1) Major depression with psychotic features: Status: Acute Code(s): F32.3 - Major depressive disorder, single episode, severe with psychotic features (2) Catatonia: Status: Acute Code(s): F06.1 - Catatonic disorder due to known physiological condition (3) Sinus bradycardia: Status: Acute Code(s): R00.1 - Bradycardia, unspecified Assessment and Plan: 08/30/2024: Continue current regimen and plans Plan HPI: Tae is a 29-year-old white, single, young man works at times at the [employer] in [place]. He is currently living at home with his parents even though he does have a place of his own. He was taken to the emergency room by his family because of some issues with anxiety, depression, at times not communicating at all. In the emergency room at [facility] he was mostly nonverbal with flat affect. He was given some Ativan which she dislikes because ?I have a reaction to it? but can not specifically say what kind. He has had 1 prior hospitalizations at [facility] for ?catatonia?. I was able to talk to his mother with his verbal permission. He was recently on a muslim pilgrimage with an organization in [place] that went to [place] for 2 months. His mother feels that he might have been traumatized there but no specifics are unknown. Upon returning he presented as being more anxious, preoccupied. He denies any auditory or visual hallucinations but his mother wonders about him at times having internal stimuli. He also gets very boggy down with certain thought processes and at times has expressed the fact that his brain and thought processes are controlled by an outside force. He denies this with me today. No history of substance abuse. When he was younger he was on Wellbutrin and Adderall and was seeing a [facility] therapist who subsequently retired and he has not been seeing anybody since. He has been sleeping adequately and according to his mother has lost around 30 lb in the past 6 months. He is currently not interested in medications. Hospital course: 08/31 On approach, patient lying on his bed in a stiff position, saying that I am just resting... Patient not wanting to engage much and had earlier refused Ativan. Pourer Crane Ladle discussed how Ativan is treatment for catatonia and patient said he would try it again. Pourer Crane Ladle approached him later and he agreed that Ativan did help him considerably and he said he was much more able to walk, talk and not have obsessive thoughts though he would not disclose the contents. Patient agreed to continue with Ativan treatment. Pourer Crane Ladle continued to talk with patient who said he was rarely comfortable sharing his private life but said he would talk in code and would use the game [employer] as an analogy. Patient said he was playing his father and chess and trying to lose in chess, and that for the past few months he had been doing weird things, eating lots of food, not talking, not sleeping (though no manic behaviors, does lying in bed wishing he could sleep)... And that he kept losing in chess over and over... He reminded short story writer that he was talking in code and wanted to know if short story writer understood. Pourer Crane Ladle explained it was not clear and patient got more anxious and said he did not want to talk much more about it for now. 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 Patient asked short story writer if short story writer was aware of the game men play. He went on to describe that there is a game where a bigger, stronger man will compete against another man with body language is able to win by making the smaller man feel low self-esteem and it causes a headache and sometimes tunneled vision and can make you end up doing something you do not want to do...; this enables the bigger man to overall do what he wants (short story writer inquired and patient denied that there is any physical, sexual or verbal abuse). Patient said that his dad has hurt his self-worth with his game for years and that it caused a lot of strange behavior. Since he was losing, Patient said his own strategy was to get good at losing. When you lose there is a way out; you find some specific thing to come out of it. Patient said that he found that eating chicken sausage was his way out and so he would need a bunch of it. He reiterated that his dad would when too much with him and his brother. Patient said that now he no longer plays the game and according to the rules, this is allowable. Patient has never talked about this with anyone and thought that 1 of the rules as your are never supposed to talk about it. Patient came to this conclusion when he overheard two other people in a private conversation say you are not supposed to talk about it; he just assumed that they were talking about this specific game. Patient denies any auditory or visual hallucinations current or past. He shared it was a relief to finally be able to talk about this game and said that he thinks it was probably okay because this short story writer was his doctor. Pourer Crane Ladle discussed treatment and that Ativan was a temporary medication use to get him out of catatonia, which seems to be helping. At this time patient is not willing to try any other medications. Pourer Crane Ladle discussed perhaps patient staying longer on the unit to continue with Ativan treatment and to see if he might change his mind about medications however at this time patient still wanted to leave when his 3 day was due. Initial formulation: Patient is describing what sounds like calm in, nonverbal interactions between males jockeying for dominance in social situations. However he has a delusional perspective on these interactions. He denies any AVH. There is speech latency and he does seem internally preoccupied so it is difficult to tell. There is also an OCD quality to some of his symptoms as he seems to have intrusive thoughts as well. At this time he is not open to other medication treatment. 09/02 Patient lacks awareness of his current presentation, thinking that if he was not on the unit, back home where he is comfortable, he would be up moving around and ready for work. Pourer Crane Ladle however reminds patient that he was at home and family was so concerned they brought him to the hospital, which he acknowledged and subsequently became more open to realizing he is not acting as his regular self. Pourer Crane Ladle discussed his current struggles with moving, eating, drinking, talking and short story writer's and mother's concern that he is not ready for discharge but she remain on the unit and consider other medication management. Patient agreed and retracted his 3 day notice and after discussing medications, risk of side effects agreed to try Risperdal. Collateral from patient's mother (patient gave permission and she has been visiting): Past summer got back from a mission trip in [place] where he was for 2 months; this past January he was fine, working and acting normally Mother reports that since this fall patient has started to detach and over ?May and June was unable to focus or function normally at work.? The past month however he has been very unusual, standing for hours in [address] and just looking at the wall or sitting in [address] and just staring blankly.? He has had a perseverative thought, saying something about? ?a foolish prayer? that he had as a child wondering if he could be forgiven?.? Would tell his mother random, odd ?things like ?give me milk at 10:00 o'clock in that cup? or tell her not to come near him right now? unable to communicate clearly or think straight.? Has not been eating much or drinking much and lost weight? -She does not know about auditory hallucinations Hx: As a child diagnosed with a central auditory processing deficit and at baseline there is some delay in thinking or responding.? He was hospitalized fears ago after he took an overdose of Adderall and got delusional. History of depression and on Wellbutrin Patient has had OCD symptoms of obsessive handwashing (possibly raynauds) Family hx: His father had a similar type episode where he was depressed but having this repetitive thought that he needs to sell everything? was treated with Zoloft which seemed helpful Patient's sister had some OCD symptoms, treated with Zoloft Impression: Given collateral, and family history of OCD, treated with SSRI, it is difficult to tell to what extent patient is experiencing exacerbation of OCD symptoms verses emergence of psychotic illness. Patient has very poor insight into his presentation, imagining that if he were to discharge today he be fully capable of working to full capacity, unaware of his slowed movements, struggles talking, confused thinking...Given his delusional ideas, short story writer will start him on low-dose Risperdal for now, instead of an SSRI; however will strongly keep this in mind going forward 09/03 Patient says he is feeling much better now that started Risperdal. Said it feels amazingly now that he can relax is mind; he feels tremendous relief from not having to focus on solving certain thoughts. Patient says he had so much unnecessary urgency to think about certain things that is now relieved. Patient feels very grateful for Risperdal. Mom feels that he is on his way back, perhaps a 01/19, 10 being his regular herself. She feels that he still not looking people in the eye as much and is still little slowed. Patient remains grateful however that he is not on a hamster real of thought. He is glad he remained for treatment; will see other week ago is a whether not to titrate Risperdal 09/04 patient remains with some latency however he feels that he is doing much better and feels much freedom from obsessive thinking and wants to leave current dose as is for now -continue Ativan 1 mg q.i.d. for now; do not want to risk catatonia returning. Will likely discharge on this dose with a built-in taper Plan: Sign CV Continue Ativan 1 mg q.i.d. for treatment of catatonia continue Risperdal 0.5 mg b.i.d. working on collateral; pt said could speak to his parents Patient educated on: diagnosis, medication risk/benefits and therapeutic strategies Informed Consent: understands and further education needed Reason for continued inpatient stay Substantial Risk for: stable for discharge and med/psych decompensation Time Spent With Patient Time: Total time managing care of this patient today ____ minutes.
[2024-09-04 20:00] VITALS: BP 112/59; PULSE 80; TEMP 36.7; O2SAT 100
[2024-09-04] MEDS: Calcium Carbonate 750 MG TAB.CHEW PO (21:02)
--- NOTE | 2024-09-05 05:51 | P.PNPSI_ITS ---
Subjective Subjective Date of Service: 09/05/24 Reason For Visit: F23, F43.22, F29 Interim History: Pt seen, discussed with the team. Isolative, in bed. Denies current sx, med SE. Asks for TUMS renewal order. Medication Compliance: Yes Side effects from medications: No Attending Groups: Intermittent Review of Systems Acute medical concerns: No Review of Systems Review of Systems GERD- requests TUMS Mental Status Exam Mental Status Exam Patient Appearance: Appropriate Patient Orientation: Person, Place and Situation Level of Consciousness: Alert Patient Behavior: Appropriate Mood Description: Withdrawn Affect Description: Withdrawn Patient Cognition Impaired: No Ability to Follow Directions: Good Speech Pattern: Spontaneous Speech Memory Description: Intact Thought Content: positive for Suicidal Ideation (denies) Judgement: Fair Diagnostics Vital Signs (24Hr): Vital Signs - 24 hr 09/04/24 08:00 09/04/24 20:00 Temperature 97.8 F 98.1 F Pulse Rate 59 80 Respiratory Rate 16 Blood Pressure 123/58 L 112/59 L Pulse Oximetry 95 100 Oxygen Delivery Method Room Air BMI result Body Mass Index 21.3 Labs 08/29/24 08:32 08/29/24 08:32 Medications Medications Current Medications Acetaminophen (Acetaminophen 325 Mg Tablet) 650 mg PO Q6H PRN PRN Reason: Headache/Pain Mild Scale (1-3) Last Admin: 09/01/24 17:55 Dose: 650 mg Calcium Carbonate (Calcium Carbonate 750 Mg Tab.Chew) 750 mg PO Q4H PRN PRN Reason: Heartburn Hydroxyzine HCl (Hydroxyzine Hcl 25 Mg Tablet) 25 mg PO Q6H PRN PRN Reason: Anxiety Lorazepam (Lorazepam 1 Mg Tablet) 1 mg PO QID [facility] Last Admin: 09/04/24 21:02 Dose: 1 mg Magnesium Hydroxide (Milk Of Magnesia 30 Ml Oral.Susp) 30 ml PO DAILY PRN PRN Reason: Constipation Risperidone (Risperidone 0.5 Mg Tablet) 0.5 mg PO BID [facility] Last Admin: 09/04/24 21:02 Dose: 0.5 mg Risperidone (Risperidone 0.5 Mg Tablet) 0.5 mg PO TID PRN PRN Reason: obsessive thinking Trazodone HCl (Trazodone Hcl 50 Mg Tablet) 50 mg PO BEDTIME MRX1 PRN PRN Reason: Insomnia Allergies Allergies Allergy/AdvReac Type Severity Reaction Status Date / Time No Known Allergies Allergy Verified 08/29/24 00:18 Assessment & Plan Assessment & Plan (1) Major depression with psychotic features: Status: Acute Code(s): F32.3 - Major depressive disorder, single episode, severe with psychotic features (2) Catatonia: Status: Acute Code(s): F06.1 - Catatonic disorder due to known physiological condition (3) Sinus bradycardia: Status: Acute Code(s): R00.1 - Bradycardia, unspecified Assessment and Plan: 08/30/2024: Continue current regimen and plans Plan HPI: Tae is a 29-year-old white, single, young man works at times at the [employer] in [place]. He is currently living at home with his parents even though he does have a place of his own. He was taken to the emergency room by his family because of some issues with anxiety, depression, at times not communicating at all. In the emergency room at [facility] he was mostly nonverbal with flat affect. He was given some Ativan which she dislikes because ?I have a reaction to it? but can not specifically say what kind. He has had 1 prior hospitalizations at [facility] for ?catatonia?. I was able to talk to his mother with his verbal permission. He was recently on a [employer] pilgrimage with an organization in [place] that went to [place] for 2 months. His mother feels that he might have been traumatized there but no specifics are unknown. Upon returning he presented as being more anxious, preoccupied. He denies any auditory or visual hallucinations but his mother wonders about him at times having internal stimuli. He also gets very boggy down with certain thought processes and at times has expressed the fact that his brain and thought processes are controlled by an outside force. He denies this with me today. No history of substance abuse. When he was younger he was on Wellbutrin and Adderall and was seeing a [employer] therapist who subsequently retired and he has not been seeing anybody since. He has been sleeping adequately and according to his mother has lost around 30 lb in the past 6 months. He is currently not interested in medications. Hospital course: 08/31 On approach, patient lying on his bed in a stiff position, saying that I am just resting... Patient not wanting to engage much and had earlier refused Ativan. [employer] discussed how Ativan is treatment for catatonia and patient said he would try it again. Se[employer]vester approached him later and he agreed that Ativan did help him considerably and he said he was much more able to walk, talk and not have obsessive thoughts though he would not disclose the contents. Patient agreed to continue with Ativan treatment. Se[employer] Harvester continued to talk with patient who said he was rarely comfortable sharing his private life but said he would talk in code and would use the game cheJellycoaster as an analogy. Patient said he was playing his father and chess and trying to lose in chess, and that for the past few months he had been doing weird things, eating lots of food, not talking, not sleeping (though no manic behaviors, does lying in bed wishing he could sleep)... And that he kept losing in chess over and over... He reminded service writer advisor that he was talking in code and wanted to know if service writer advisor understood. Se[employer] Harvester explained it was not clear and patient got more anxious and said he did not want to talk much more about it for now. Patient was able to talk about other things, such as working at his [employer] 09/01 Patient though guarded, decided to be open about what he was thinking and feeling. Patient asked service writer advisor if service writer advisor was aware of the game men play. He went on to describe that there is a game where a bigger, stronger man will compete against another man with body language is able to win by making the smaller man feel low self-esteem and it causes a headache and sometimes tunneled vision and can make you end up doing something you do not want to do...; this enables the bigger man to overall do what he wants (service writer advisor inquired and patient denied that there is any physical, sexual or verbal abuse). Patient said that his dad has hurt his self-worth with his game for years and that it caused a lot of strange behavior. Since he was losing, Patient said his own strategy was to get good at losing. When you lose there is a way out; you find some specific thing to come out of it. Patient said that he found that eating chicken sausage was his way out and so he would need a bunch of it. He reiterated that his dad would when too much with him and his brother. Patient said that now he no longer plays the game and according to the rules, this is allowable. Patient has never talked about this with anyone and thought that 1 of the rules as your are never supposed to talk about it. Patient came to this conclusion when he overheard two other people in a private conversation say you are not supposed to talk about it; he just assumed that they were talking about this specific game. Patient denies any auditory or visual hallucinations current or past. He shared it was a relief to finally be able to talk about this game and said that he thinks it was probably okay because this service writer advisor was his doctor. Se[employer] discussed treatment and that Ativan was a temporary medication use to get him out of catatonia, which seems to be helping. At this time patient is not willing to try any other medications. Se[employer] Harvester discussed perhaps patient staying longer on the unit to continue with Ativan treatment and to see if he might change his mind about medications however at this time patient still wanted to leave when his 3 day was due. Initial formulation: Patient is describing what sounds like calm in, nonverbal interactions between males jockeying for dominance in social situations. However he has a delusional perspective on these interactions. He denies any AVH. There is speech latency and he does seem internally preoccupied so it is difficult to tell. There is also an OCD quality to some of his symptoms as he seems to have intrusive thoughts as well. At this time he is not open to other medication treatment. 09/02 Patient lacks awareness of his current presentation, thinking that if he was not on the unit, back home where he is comfortable, he would be up moving around and ready for work. Se[employer] Harvester however reminds patient that he was at home and family was so concerned they brought him to the hospital, which he acknowledged and subsequently became more open to realizing he is not acting as his regular self. Se[employer] Harvester discussed his current struggles with moving, eating, drinking, talking and service writer advisor's and mother's concern that he is not ready for discharge but she remain on the unit and consider other medication management. Patient agreed and retracted his 3 day notice and after discussing medications, risk of side effects agreed to try Risperdal. Collateral from patient's mother (patient gave permission and she has been visiting): Past summer got back from a mission trip in [place] where he was for 2 months; this past January he was fine, working and acting normally Mother reports that since this fall patient has started to detach and over ?May and June was unable to focus or function normally at work.? The past month however he has been very unusual, standing for hours in [address] and just looking at the wall or sitting in [address] and just staring blankly.? He has had a perseverative thought, saying something about? ?a foolish prayer? that he had as a child wondering if he could be forgiven?.? Would tell his mother random, odd ?things like ?give me milk at 10:00 o'clock in that cup? or tell her not to come near him right now? unable to communicate clearly or think straight.? Has not been eating much or drinking much and lost weight? -She does not know about auditory hallucinations Hx: As a child diagnosed with a central auditory processing deficit and at baseline there is some delay in thinking or responding.? He was hospitalized fears ago after he took an overdose of Adderall and got delusional. History of depression and on Wellbutrin Patient has had OCD symptoms of obsessive handwashing (possibly raynauds) Family hx: His father had a similar type episode where he was depressed but having this repetitive thought that he needs to sell everything? was treated with Zoloft which seemed helpful Patient's sister had some OCD symptoms, treated with Zoloft Impression: Given collateral, and family history of OCD, treated with SSRI, it is difficult to tell to what extent patient is experiencing exacerbation of OCD symptoms verses emergence of psychotic illness. Patient has very poor insight into his presentation, imagining that if he were to discharge today he be fully capable of working to full capacity, unaware of his slowed movements, struggles talking, confused thinking...Given his delusional ideas, service writer advisor will start him on low- dose Risperdal for now, instead of an SSRI; however will strongly keep this in mind going forward 09/03 Patient says he is feeling much better now that started Risperdal. Said it feels amazingly now that he can relax is mind; he feels tremendous relief from not having to focus on solving certain thoughts. Patient says he had so much unnecessary urgency to think about certain things that is now relieved. Patient feels very grateful for Risperdal. Mom feels that he is on his way back, perhaps a 01/19, 10 being his regular herself. She feels that he still not looking people in the eye as much and is still little slowed. Patient remains grateful however that he is not on a hamster real of thought. He is glad he remained for treatment; will see other week ago is a whether not to titrate Risperdal 09/04 patient remains with some latency however he feels that he is doing much better and feels much freedom from obsessive thinking and wants to leave current dose as is for now -continue Ativan 1 mg q.i.d. for now; do not want to risk catatonia returning. Will likely discharge on this dose with a built-in taper 09/05 Continue tx Plan: Sign CV Continue Ativan 1 mg q.i.d. for treatment of catatonia continue Risperdal 0.5 mg b.i.d. working on collateral; pt said could speak to his parents Reason for continued inpatient stay Substantial Risk for: rapid decompensation Time Spent With Patient Time: Total time managing care of this patient today ____ minutes.
[2024-09-05 08:00] VITALS: BP 111/58; PULSE 68; RESP 16; TEMP 36.9; O2SAT 99
[2024-09-05] MEDS: LORazepam 1 MG TABLET PO ×4 (08:29→21:06)
[2024-09-05] MEDS: risperiDONE 0.5 MG TABLET PO ×2 (08:29→21:06)
[2024-09-05] MEDS: Calcium Carbonate 750 MG TAB.CHEW PO (17:30)
[2024-09-05 19:47] VITALS: BP 123/78; PULSE 103; TEMP 35.6; O2SAT 100
[2024-09-06 07:48] VITALS: BP 105/58; PULSE 86; RESP 16; TEMP 36.5; O2SAT 98
[2024-09-06] MEDS: Calcium Carbonate 750 MG TAB.CHEW PO (08:11)
[2024-09-06] MEDS: risperiDONE 0.5 MG TABLET PO ×2 (08:11→20:02)
[2024-09-06] MEDS: LORazepam 1 MG TABLET PO ×4 (08:12→20:02)
--- NOTE | 2024-09-06 08:44 | P.PNPSI_ITS ---
Subjective Subjective Date of Service: 09/06/24 Reason For Visit: F23, F43.22, F29 Interim History: Pt seen and discussed with his team. In bed, continues to report GERD sx. Agreed to trial Prilosec Denies med SE and reports current regime to continue to be helpful. Medication Compliance: Yes Side effects from medications: No Attending Groups: No Review of Systems Acute medical concerns: No GERD sx Medical Review of Systems: unchanged Review of Systems Review of Systems GERD- Mental Status Exam Mental Status Exam Patient Appearance: Appropriate Patient Orientation: Person, Place and Situation Level of Consciousness: Alert Patient Behavior: Appropriate Mood Description: Withdrawn Affect Description: Withdrawn Patient Cognition Impaired: No Ability to Follow Directions: Good Speech Pattern: Spontaneous Speech Memory Description: Intact Thought Content: positive for Suicidal Ideation (denies) Judgement: Fair Diagnostics Vital Signs (24Hr): Vital Signs - 24 hr 09/05/24 19:47 09/06/24 07:48 Temperature 96.0 F L 97.7 F Pulse Rate 103 H 86 Respiratory Rate 16 Blood Pressure 123/78 105/58 L Pulse Oximetry 100 98 Oxygen Delivery Method Room Air Room Air BMI result Body Mass Index 21.3 Labs 08/29/24 08:32 08/29/24 08:32 Medications Medications Current Medications Acetaminophen (Acetaminophen 325 Mg Tablet) 650 mg PO Q6H PRN PRN Reason: Headache/Pain Mild Scale (1-3) Last Admin: 09/01/24 17:55 Dose: 650 mg Calcium Carbonate (Calcium Carbonate 750 Mg Tab.Chew) 750 mg PO Q4H PRN PRN Reason: Heartburn Last Admin: 09/06/24 08:11 Dose: 750 mg Calcium Carbonate (Calcium Carbonate 750 Mg Tab.Chew) 750 mg PO Q4H PRN PRN Reason: Heartburn Hydroxyzine HCl (Hydroxyzine Hcl 25 Mg Tablet) 25 mg PO Q6H PRN PRN Reason: Anxiety Lorazepam (Lorazepam 1 Mg Tablet) 1 mg PO QID [facility] Last Admin: 09/06/24 08:12 Dose: 1 mg Magnesium Hydroxide (Milk Of Magnesia 30 Ml Oral.Susp) 30 ml PO DAILY PRN PRN Reason: Constipation Risperidone (Risperidone 0.5 Mg Tablet) 0.5 mg PO BID [facility] Last Admin: 09/06/24 08:11 Dose: 0.5 mg Risperidone (Risperidone 0.5 Mg Tablet) 0.5 mg PO TID PRN PRN Reason: obsessive thinking Trazodone HCl (Trazodone Hcl 50 Mg Tablet) 50 mg PO BEDTIME MRX1 PRN PRN Reason: Insomnia Allergies Allergies Allergy/AdvReac Type Severity Reaction Status Date / Time No Known Allergies Allergy Verified 08/29/24 00:18 Assessment & Plan Assessment & Plan (1) Major depression with psychotic features: Status: Acute Code(s): F32.3 - Major depressive disorder, single episode, severe with psychotic features (2) Catatonia: Status: Acute Code(s): F06.1 - Catatonic disorder due to known physiological condition (3) Sinus bradycardia: Status: Acute Code(s): R00.1 - Bradycardia, unspecified Assessment and Plan: 08/30/2024: Continue current regimen and plans Plan HPI: Tae is a 29-year-old white, single, young man works at times at the [employer] in [place]. He is currently living at home with his parents even though he does have a place of his own. He was taken to the emergency room by his family because of some issues with anxiety, depression, at times not communicating at all. In the emergency room at [facility] he was mostly nonverbal with flat affect. He was given some Ativan which she dislikes because ?I have a reaction to it? but can not specifically say what kind. He has had 1 prior hospitalizations at [facility] for ?catatonia?. I was able to talk to his mother with his verbal permission. He was recently on a synagogue pilgrimage with an organization in [place] that went to [place] for 2 months. His mother feels that he might have been traumatized there but no specifics are unknown. Upon returning he presented as being more anxious, preoccupied. He denies any auditory or visual hallucinations but his mother wonders about him at times having internal stimuli. He also gets very boggy down with certain thought processes and at times has expressed the fact that his brain and thought processes are controlled by an outside force. He denies this with me today. No history of substance abuse. When he was younger he was on Wellbutrin and Adderall and was seeing a [facility] therapist who subsequently retired and he has not been seeing anybody since. He has been sleeping adequately and according to his mother has lost around 30 lb in the past 6 months. He is currently not interested in medications. Hospital course: 08/31 On approach, patient lying on his bed in a stiff position, saying that I am just resting... Patient not wanting to engage much and had earlier refused Ativan. Paint Mixer Machine discussed how Ativan is treatment for catatonia and patient said he would try it again. Paint Mixer Machine approached him later and he agreed that Ativan did help him considerably and he said he was much more able to walk, talk and not have obsessive thoughts though he would not disclose the contents. Patient agreed to continue with Ativan treatment. Paint Mixer Machine continued to talk with patient who said he was rarely comfortable sharing his private life but said he would talk in code and would use the game [employer] as an analogy. Patient said he was playing his father and chess and trying to lose in chess, and that for the past few months he had been doing weird things, eating lots of food, not talking, not sleeping (though no manic behaviors, does lying in bed wishing he could sleep)... And that he kept losing in chess over and over... He reminded junior technical writer that he was talking in code and wanted to know if junior technical writer understood. Paint Mixer Machine explained it was not clear and patient got more anxious and said he did not want to talk much more about it for now. 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 Patient asked junior technical writer if junior technical writer was aware of the game men play. He went on to describe that there is a game where a bigger, stronger man will compete against another man with body language is able to win by making the smaller man feel low self-esteem and it causes a headache and sometimes tunneled vision and can make you end up doing something you do not want to do...; this enables the bigger man to overall do what he wants (junior technical writer inquired and patient denied that there is any physical, sexual or verbal abuse). Patient said that his dad has hurt his self-worth with his game for years and that it caused a lot of strange behavior. Since he was losing, Patient said his own strategy was to get good at losing. When you lose there is a way out; you find some specific thing to come out of it. Patient said that he found that eating chicken sausage was his way out and so he would need a bunch of it. He reiterated that his dad would when too much with him and his brother. Patient said that now he no longer plays the game and according to the rules, this is allowable. Patient has never talked about this with anyone and thought that 1 of the rules as your are never supposed to talk about it. Patient came to this conclusion when he overheard two other people in a private conversation say you are not supposed to talk about it; he just assumed that they were talking about this specific game. Patient denies any auditory or visual hallucinations current or past. He shared it was a relief to finally be able to talk about this game and said that he thinks it was probably okay because this junior technical writer was his doctor. Paint Mixer Machine discussed treatment and that Ativan was a temporary medication use to get him out of catatonia, which seems to be helping. At this time patient is not willing to try any other medications. Paint Mixer Machine discussed perhaps patient staying longer on the unit to continue with Ativan treatment and to see if he might change his mind about medications however at this time patient still wanted to leave when his 3 day was due. Initial formulation: Patient is describing what sounds like calm in, nonverbal interactions between males jockeying for dominance in social situations. However he has a delusional perspective on these interactions. He denies any AVH. There is speech latency and he does seem internally preoccupied so it is difficult to tell. There is also an OCD quality to some of his symptoms as he seems to have intrusive thoughts as well. At this time he is not open to other medication treatment. 09/02 Patient lacks awareness of his current presentation, thinking that if he was not on the unit, back home where he is comfortable, he would be up moving around and ready for work. Paint Mixer Machine however reminds patient that he was at home and family was so concerned they brought him to the hospital, which he acknowledged and subsequently became more open to realizing he is not acting as his regular self. Paint Mixer Machine discussed his current struggles with moving, eating, drinking, talking and junior technical writer's and mother's concern that he is not ready for discharge but she remain on the unit and consider other medication management. Patient agreed and retracted his 3 day notice and after discussing medications, risk of side effects agreed to try Risperdal. Collateral from patient's mother (patient gave permission and she has been visiting): Past summer got back from a mission trip in [place] where he was for 2 months; this past January he was fine, working and acting normally Mother reports that since this fall patient has started to detach and over ?May and June was unable to focus or function normally at work.? The past month however he has been very unusual, standing for hours in [address] and just looking at the wall or sitting in [address] and just staring blankly.? He has had a perseverative thought, saying something about? ?a foolish prayer? that he had as a child wondering if he could be forgiven?.? Would tell his mother random, odd ?things like ?give me milk at 10:00 o'clock in that cup? or tell her not to come near him right now? unable to communicate clearly or think straight.? Has not been eating much or drinking much and lost weight? -She does not know about auditory hallucinations Hx: As a child diagnosed with a central auditory processing deficit and at baseline there is some delay in thinking or responding.? He was hospitalized fears ago after he took an overdose of Adderall and got delusional. History of depression and on Wellbutrin Patient has had OCD symptoms of obsessive handwashing (possibly raynauds) Family hx: His father had a similar type episode where he was depressed but having this repetitive thought that he needs to sell everything? was treated with Zoloft which seemed helpful Patient's sister had some OCD symptoms, treated with Zoloft Impression: Given collateral, and family history of OCD, treated with SSRI, it is difficult to tell to what extent patient is experiencing exacerbation of OCD symptoms verses emergence of psychotic illness. Patient has very poor insight into his presentation, imagining that if he were to discharge today he be fully capable of working to full capacity, unaware of his slowed movements, struggles talking, confused thinking...Given his delusional ideas, junior technical writer will start him on low- dose Risperdal for now, instead of an SSRI; however will strongly keep this in mind going forward 09/03 Patient says he is feeling much better now that started Risperdal. Said it feels amazingly now that he can relax is mind; he feels tremendous relief from not having to focus on solving certain thoughts. Patient says he had so much unnecessary urgency to think about certain things that is now relieved. Patient feels very grateful for Risperdal. Mom feels that he is on his way back, perhaps a 610, 10 being his regular herself. She feels that he still not looking people in the eye as much and is still little slowed. Patient remains grateful however that he is not on a hamster real of thought. He is glad he remained for treatment; will see other week ago is a whether not to titrate Risperdal 09/04 patient remains with some latency however he feels that he is doing much better and feels much freedom from obsessive thinking and wants to leave current dose as is for now -continue Ativan 1 mg q.i.d. for now; do not want to risk catatonia returning. Will likely discharge on this dose with a built-in taper 09/06- Prilosec 20 mg daily Plan: Sign CV Continue Ativan 1 mg q.i.d. for treatment of catatonia continue Risperdal 0.5 mg b.i.d. working on collateral; pt said could speak to his parents Reason for continued inpatient stay Substantial Risk for: rapid decompensation Time Spent With Patient Time: Total time managing care of this patient today ____ minutes.
[2024-09-06] MEDS: Omeprazole 20 MG CAPSULE.DR PO (11:38)
[2024-09-06 20:00] VITALS: BP 122/76; PULSE 70; TEMP 36.8; O2SAT 99
[2024-09-07 08:00] VITALS: BP 99/58; PULSE 60; RESP 16; TEMP 36.8; O2SAT 99
[2024-09-07] MEDS: LORazepam 1 MG TABLET PO (08:22)
[2024-09-07] MEDS: Omeprazole 20 MG CAPSULE.DR PO (08:22)
[2024-09-07] MEDS: risperiDONE 0.5 MG TABLET PO (08:22)
--- NOTE | 2024-09-07 11:52 | PM.PSYDC ---
DS: Providers Provider Date of Service: 09/07/24 Date of admission: 08/28/24 23:57 Date of discharge: 09/07/24 Primary care physician: Unknown Physician Attending physician on admission: Dion Flores Consults: 08/29/24 00:20 Consult to Hospitalist Routine Comment: Consulting Provider: [facility] Reason For Exam: Direct admission, ECT clearance Attending physician on discharge: Holland Loredo DS: Diagnosis Discharge Diagnosis (1) Major depression with psychotic features: Status: Acute (2) Catatonia: Status: Acute (3) Sinus bradycardia: Status: Acute DS: Medications Discharge Medications Home Medications: Previous Rx's ?Medication ?Instructions ?Recorded lorazepam 1 mg tablet See Rx Instructions .Route 09/07/24 .COMPLEX #37 tabs omeprazole 20 mg capsule,delayed 20 mg PO DAILY@0630 30 days #30 09/07/24 release caps risperidone 0.5 mg tablet See Rx Instructions .Route 09/07/24 .COMPLEX 30 days #70 tabs DS: Summary Time Spent with Patient Time attestation: Total time managing care of this patient today ____ minutes. Discharge Plan Discharge Anticipated Discharge Date/Time: 09/07/24 11:30 Patient Disposition: Home, Self-Care Discharge Diagnosis: OCD, unspecified (r/o psychotic illness) Referrals: [facility]-Therapy [Other] - 09/10/24 1:00 pm (Please arrive 15 minutes early to complete intake paperwork Appointment is with Mango Butcher ) [facility]-Psychiatric Evaluation [Other] - 10/01/24 1:30 pm (Telehealth appointment with Mary Kate Pérez ) [facility]- Medication Management [Other] - 10/27/24 1:30 pm (Telehealth appointment with Mary Kate Pérez ) [facility] [place]Other] - 1 Week (If you decide that you are interested in [facility] please call the provided number to inquire further and potentially set up an intake appointment ) Alonso Sanchez MD [Physician] - 09/17/24 3:00 pm (In office appointment ) Discharge Medications: New lorazepam 1 mg Tablet See Rx Instructions .ROUTE .COMPLEX Qty: 37 0RF Rx Instructions: take Ativan 1mg QID for 4 days then take Ativan 1mg TID for 4 days then take Ativan 1mg BID for 3 days then take Ativan 1mg daily for 3 days risperidone 0.5 mg Tablet See Rx Instructions .ROUTE .COMPLEX 30 Days Qty: 70 1RF Rx Instructions: take 1 tab BID; may take additional tab daily for breakthrough intrusive thoughts omeprazole 20 mg Capsule,Delayed Release(Dr/Ec) 20 mg PO DAILY@0630 30 Days Qty: 30 0RF Discharge Orders: Discharge Order (Routine); Ordered 09/07/24 Ordered By: Holland Loredo Diet: Regular diet Activity on Discharge: As tolerated Stand Alone Forms: Patient Portal Discharge page, Community Support Print Language: Mongolian Care Plan Goals: Maintain mood and safe behaviors Take medications as prescribed Practice coping skills Continue with outpatient providers and reach out to them as needed Health Concerns: Mood stability and behaviors GERD Plan of Treatment: Follow up with your PCP, psychiatric provider and other outpatient providers regarding above concerns Take medications as prescribed Assessment: Risk assessment at time of discharge:? Patient was interviewed prior to discharge and found to be fully oriented and without any SI or HI. Patient has improved insight and judgment and wants to continue treatment. Patient is not in imminent risk of harm to self or others and has a safety plan that includes presenting to the closest ER or calling 911 if feeling unsafe.? Patient has been observed closely by nursing and unit staff throughout admission; patient has not engaged in any behaviors that suggest dangerousness to self or others and has demonstrated appropriate behaviors and impulse control
== END 2024-09-07 12:05 | disposition home or self-care (01) | DRG 751 ==
PROVIDERS: Psychiatry & Neurology Psychiatry; Admitting Provider Psychiatry & Neurology Psychiatry; Visit Provider Psychiatry & Neurology Psychiatry
DX: F32.3 Major depressive disorder, single episode, severe with psychotic features (principal); F06.1 Catatonic disorder due to known physiological condition; R00.1 Bradycardia, unspecified; F42.9 Obsessive-compulsive disorder, unspecified; Z87.891 Personal history of nicotine dependence; Z79.899 Other long term (current) drug therapy
CPT/HCPCS: 36415; 80053; 85025; 93005

== ENCOUNTER → 2024-08-28 23:57 | Outpatient (BNV) | payer BC, SELFPAY | PROVIDERS: Admitting Provider Psychiatry & Neurology Psychiatry; Visit Provider Psychiatry & Neurology Psychiatry | DX: F32.3 Major depressive disorder, single episode, severe with psychotic features (principal); F06.1 Catatonic disorder due to known physiological condition; R00.1 Bradycardia, unspecified | CPT/HCPCS: 90792; 99232 ==

== ENCOUNTER → 2024-08-28 23:57 | Outpatient (BNV) | payer BC, SELFPAY | PROVIDERS: Admitting Provider Psychiatry & Neurology Psychiatry; Visit Provider Internal Medicine | DX: F32.3 Major depressive disorder, single episode, severe with psychotic features (principal); R00.1 Bradycardia, unspecified | CPT/HCPCS: 99222 ==